=== PATIENT | male | born 1955 | race Caucasian/White ===

== ENCOUNTER 2023-07-30 14:04 | Inpatient (IN) | payer MEDICARE ==
[~2023-07-30 14:04] MED LIST: Iopamidol-370 76% 500 ML MDV (1 ML CHARGE) ONE
[2023-07-30 14:52] LABS: Hematocrit 34.7 % (42.0-52.0); Hemoglobin 11.7 g/dL (14.0-18.0); Manual Diff?? YES; Mean Corpuscular HGB CONC 33.7 g/dL (32.0-36.0); Mean Corpuscular Hemoglobin 30.3 pg (27.0-31.0); Mean Corpuscular Volume 89.9 fl (78.0-98.0); Mean Platelet Volume 11.1 fL (7.4-10.4); Platelet Count 208 10x3/uL (130-400); RBC Distribution Width 20.2 % (11.5-14.5); Red Blood Cell (RBC) Count 3.86 mill/uL (4.70-6.10); White Blood Cell (WBC) Count 9.6 10x3/uL (4.8-10.8)
[2023-07-30 14:56] LABS: Delete Auto Diff?? YES
[2023-07-30 15:13] LABS: INR-International Normal Ratio 0.9; PTT 29.2 sec (22.9-36.1); Prothrombin Time 12.3 sec (12.0-14.7)
[2023-07-30 15:15] LABS: ALT (SGPT) 575 U/L (8-55); AST (SGOT) 344 U/L (5-34); Albumin 3.9 g/dL (3.4-4.8); Alkaline Phosphatase 832 U/L (40-110); Anion Gap 11 mmol/L (10-20); BUN (Urea Nitrogen) 16 mg/dL (8.4-25.7); Bilirubin, Total 6.3 mg/dL (0.2-1.2); Calc. Creatinine Clearance 0 mL/min (70-130); Calcium 8.9 mg/dL (7.8-10.44); Carbon Dioxide 23 mmol/L (23-31); Chloride 101 mmol/L (98-107); Estimated GFR 96; Globulin 3.5 g/dL (2.4-3.5); Glucose 98 mg/dL (80-115); Lipase Less than 4 U/L (8-78); Potassium 3.9 mmol/L (3.5-5.1); Protein, Total 7.4 g/dL (5.8-8.1); Sodium 131 mmol/L (136-145)
[2023-07-30 15:17] LABS: Anisocytosis SLIGHT = 6-15 cells HPF (0-5); Band 1 % (5-11); CellaVision Operator ID LAB.MJL; Eosinophils 1 % (0-10); Lymphocytes 21 % (21-51); Monocytes 13 % (0-10); Neutrophil 63 % (42-75); Platelet Adequacy Comment Platelets Normal; Poikilocytosis MODERATE=16-30 cells HPF (0-5); Polychromasia SLIGHT = 2-3 cells HPF (0-2); Reactive Lymphocytes 1 % (0-10); Stomatocytes SLIGHT = 2-5 cells HPF (0-1); Target Cells MODERATE= 6-15 cells HPF (0-1); Total Cell Count 100
[2023-07-30 15:54] LABS: Bacteria/HPF None Seen HPF (None Seen); Bilirubin Negative (Negative); Blood, Urine Negative (Negative); CAUTI Indications for Culture Pelvic or flank pain; Clarity Clear (Clear); Glucose, Urine (Dipstick) Normal (Negative); Ketone, Urine Trace mg/dL (Negative); Leukocyte Negative Leu/uL (Negative); Nitrite Negative (Negative); Protein, Urine (Dipstick) Negative (Neg-Trace); RBC/HPF 0-3 HPF (0-3); Specific Gravity, Urine 1.015 (1.002-1.036); Squamous Epithelial None Seen HPF (0-3); Urobilinogen Normal mg/dL (Less than 2); WBC/HPF 0-3 HPF (0-3); pH, Urine 5.5 (5.0-9.0)
[2023-07-30 16:06] LABS: Urine Culture Reflex No No
[2023-07-30] MEDS ORDERED: Ondansetron ODT 4 MG TAB PO PRN (19:17)
[2023-07-30] MEDS ORDERED: Lorazepam 1 MG TAB PO PRN (19:24)
[2023-07-30] MEDS ORDERED: Lorazepam 2 MG/ML VIAL IM PRN (19:24)
[2023-07-30 19:49] VITALS: BMI 23.6
[2023-07-30 20:16] LABS: Amphetamine Not Detected (NotDetected); Barbiturates Screen Not Detected (NotDetected); Benzodiazepine Screen Not Detected (NotDetected); Cocaine Metabolite Screen Not Detected (NotDetected); Methadone Not Detected (NotDetected); Methamphetamine Not Detected (NotDetected); Opiate Screen Not Detected (NotDetected); Oxycodone Screen Not Detected (NotDetected); Phencyclidine (PCP) Not Detected (NotDetected); THC/Cannabinoid Screen Detected (NotDetected); Tricyclic Screen Not Detected (NotDetected)
[2023-07-30 20:54] LABS: Acetaminophen Less than 10 mcg/mL (10.0-30.0); Alcohol Less than 10.0 mg/dL (Less than 10)
[2023-07-30 21:27] LABS: Magnesium 1.9 mg/dL (1.6-2.6); Phosphorus 3.6 mg/dL (2.3-4.7)
[2023-07-30] MEDS: Tamsulosin HCl 0.4 MG CAP PO SCH (22:22)
[2023-07-30] MEDS: Multivit, Therapeutic 1 TAB PO SCH (22:22)
[2023-07-30] MEDS: Folic Acid 1 MG TAB PO SCH (22:22)
[2023-07-30] MEDS: Thiamine HCl 200 MG/2 ML VIAL SLOW IVP SCH (22:23)
[2023-07-30 23:53] LABS: HBCM Index 0.08 S/CO (0-0.79); HBSAg Index 0.16 S/CO (0-0.99); Hep A IgM AB Non-Reactive S/CO (NonReactive); Hep A IgM S/CO 0.12 S/CO (0-0.79); Hep B Surf Ag Non-Reactive S/CO (NonReactive); Hep C IgG Ab Non-Reactive S/CO (NonReactive); Hep C Index 0.12 S/CO (0-0.79); Hepatitis B Core IgM Abs Non-Reactive S/CO (NonReactive)
[2023-07-31 06:07] LABS: #Eosinphils 0.3 thou/uL (0.0-0.7); #Monocytes 1.4 thou/uL (0.11-0.59); %Basophils 0.1 % (0.0-1.0); %Eosinophils 3.5 % (0.0-10.0); %Lymphocytes 23.7 % (21.0-51.0); %Monocytes 15.8 % (0.0-10.0); %Neutrophils 56.6 % (42.0-75.0); Hematocrit 33.4 % (42.0-52.0); Mean Corpuscular HGB CONC 32.9 g/dL (32.0-36.0); Mean Corpuscular Hemoglobin 30.3 pg (27.0-31.0); Mean Platelet Volume 12.4 fL (7.4-10.4); Platelet Count 207 10x3/uL (130-400); RBC Distribution Width 18.1 % (11.5-14.5); Red Blood Cell (RBC) Count 3.63 mill/uL (4.70-6.10); White Blood Cell (WBC) Count 8.8 10x3/uL (4.8-10.8)
[2023-07-31 06:38] LABS: Phosphorus 4.1 mg/dL (2.3-4.7)
[2023-07-31 06:40] LABS: ALT (SGPT) 506 U/L (8-55); AST (SGOT) 388 U/L (5-34); Albumin 3.4 g/dL (3.4-4.8); Alkaline Phosphatase 734 U/L (40-110); Anion Gap 12 mmol/L (10-20); BUN (Urea Nitrogen) 19 mg/dL (8.4-25.7); Bilirubin, Total 6.5 mg/dL (0.2-1.2); Calc. Creatinine Clearance 88 mL/min (70-130); Calcium 8.5 mg/dL (7.8-10.44); Carbon Dioxide 23 mmol/L (23-31); Chloride 103 mmol/L (98-107); Estimated GFR 95; Glucose 101 mg/dL (80-115); Magnesium 2.1 mg/dL (1.6-2.6); Potassium 3.7 mmol/L (3.5-5.1); Protein, Total 6.4 g/dL (5.8-8.1); Sodium 134 mmol/L (136-145)
[2023-07-31 07:23] LABS: Triglycerides 63 mg/dL (Less than 150)
[2023-07-31 07:28] LABS: Cardiac Risk 18.8 (Less than 4.5); Cholesterol 450 mg/dl (< 200 Desired); HDL Cholesterol 24 mg/dL (>60 Neg Risk); LDL Cholesterol, Calculated 413 mg/dL
[2023-07-31] MEDS: Enoxaparin 40 MG (0.4 mL) SYRINGE SC SCH (08:05)
[2023-07-31] MEDS: Multivit, Therapeutic 1 TAB PO SCH (08:06)
[2023-07-31] MEDS: Folic Acid 1 MG TAB PO SCH (08:07)
[2023-07-31] MEDS ORDERED: Magnevist 469MG/ML 20 ML VIAL ONE (10:47)
[2023-07-31] MEDS ORDERED: Lorazepam 1 MG TAB PO PRN (19:25)
[2023-07-31] MEDS: diphenhydrAMINE 12.5 MG/5 ML UDCUP PO PRN (21:12)
[2023-08-01 05:28] LABS: #Eosinphils 0.3 thou/uL (0.0-0.7); #Monocytes 1.5 thou/uL (0.11-0.59); #Neutrophils 6.4 thou/uL (1.40-6.50); %Basophils 0.3 % (0.0-1.0); %Eosinophils 3.1 % (0.0-10.0); %Lymphocytes 19.2 % (21.0-51.0); %Monocytes 14.5 % (0.0-10.0); %Neutrophils 62.4 % (42.0-75.0); Hematocrit 34.6 % (42.0-52.0); Hemoglobin 11.2 g/dL (14.0-18.0); Mean Corpuscular HGB CONC 32.4 g/dL (32.0-36.0); Mean Corpuscular Hemoglobin 29.8 pg (27.0-31.0); Mean Platelet Volume 12.7 fL (7.4-10.4); Platelet Count 224 10x3/uL (130-400); RBC Distribution Width 17.3 % (11.5-14.5); Red Blood Cell (RBC) Count 3.76 mill/uL (4.70-6.10); White Blood Cell (WBC) Count 10.3 10x3/uL (4.8-10.8)
[2023-08-01 05:52] LABS: ALT (SGPT) 381 U/L (8-55); AST (SGOT) 180 U/L (5-34); Albumin 3.4 g/dL (3.4-4.8); Alkaline Phosphatase 665 U/L (40-110); Anion Gap 7 mmol/L (10-20); BUN (Urea Nitrogen) 22 mg/dL (8.4-25.7); Bilirubin, Total 4.1 mg/dL (0.2-1.2); Calc. Creatinine Clearance 76 mL/min (70-130); Calcium 8.7 mg/dL (7.8-10.44); Carbon Dioxide 30 mmol/L (23-31); Chloride 104 mmol/L (98-107); Estimated GFR 82; Globulin 3.1 g/dL (2.4-3.5); Glucose 118 mg/dL (80-115); Potassium 4.2 mmol/L (3.5-5.1); Protein, Total 6.5 g/dL (5.8-8.1); Sodium 137 mmol/L (136-145)
[2023-08-01] MEDS: Lactated Ringer's 1,000 ML IV SCH (09:10)
[2023-08-01] MEDS: diphenhydrAMINE 50 MG/ML VIAL IVP SCH (10:03)
[2023-08-01] MEDS ORDERED: Lorazepam 1 MG TAB PO PRN (19:25)
[2023-08-01] MEDS: Thiamine HCl 200 MG/2 ML VIAL SLOW IVP SCH (23:05)
[2023-08-02 04:33] LABS: #Eosinphils 0.3 thou/uL (0.0-0.7); #Monocytes 1.3 thou/uL (0.11-0.59); #Neutrophils 4.8 thou/uL (1.40-6.50); %Basophils 0.3 % (0.0-1.0); %Eosinophils 3.6 % (0.0-10.0); %Monocytes 14.7 % (0.0-10.0); %Neutrophils 54.9 % (42.0-75.0); Hematocrit 32.3 % (42.0-52.0); Hemoglobin 10.6 g/dL (14.0-18.0); Mean Corpuscular HGB CONC 32.8 g/dL (32.0-36.0); Mean Corpuscular Hemoglobin 30.8 pg (27.0-31.0); Mean Corpuscular Volume 93.9 fl (78.0-98.0); Mean Platelet Volume 11.6 fL (7.4-10.4); Platelet Count 209 10x3/uL (130-400); RBC Distribution Width 16.3 % (11.5-14.5); Red Blood Cell (RBC) Count 3.44 mill/uL (4.70-6.10); White Blood Cell (WBC) Count 8.8 10x3/uL (4.8-10.8)
[2023-08-02 04:58] LABS: ALT (SGPT) 294 U/L (8-55); AST (SGOT) 132 U/L (5-34); Albumin 3.4 g/dL (3.4-4.8); Alkaline Phosphatase 592 U/L (40-110); Anion Gap 11 mmol/L (10-20); BUN (Urea Nitrogen) 21 mg/dL (8.4-25.7); Bilirubin, Total 4.1 mg/dL (0.2-1.2); Calc. Creatinine Clearance 84 mL/min (70-130); Calcium 8.5 mg/dL (7.8-10.44); Carbon Dioxide 25 mmol/L (23-31); Chloride 105 mmol/L (98-107); Estimated GFR 93; Globulin 3.1 g/dL (2.4-3.5); Glucose 114 mg/dL (80-115); Potassium 4.3 mmol/L (3.5-5.1); Protein, Total 6.5 g/dL (5.8-8.1); Sodium 137 mmol/L (136-145)
[2023-08-02 09:17] VITALS: BP 123/71; TEMP 97.6
[2023-08-02] MEDS ORDERED: Lorazepam 0.5 MG TAB PO PRN (19:25)
[2023-08-02] MEDS ORDERED: Thiamine 100 MG TAB PO SCH (19:30)
== END 2023-08-02 09:22 | disposition short-term general hospital (02) | DRG 375 ==
LOC: ERS 14:04 → T4-A 17:13 → OBSVTOIN 07-31 14:11
PROVIDERS: ADMIT Family Medicine; ATTEND Family Medicine
PROC: HZ2ZZZZ Detoxification Services for Substance Abuse Treatment (ICD-10-PCS; principal; 2023-07-31)
DX: D49.0 Neoplasm of unspecified behavior of digestive system (principal); E87.1 Hypo-osmolality and hyponatremia; R17 Unspecified jaundice; N40.0 Benign prostatic hyperplasia without lower urinary tract symptoms; F10.10 Alcohol abuse, uncomplicated; D64.9 Anemia, unspecified; Z98.890 Other specified postprocedural states; Z87.891 Personal history of nicotine dependence; E78.00 Pure hypercholesterolemia, unspecified
CPT/HCPCS: 36415; 74177; 74183; 76705; 80053; 80061; 80074; 80143; 80306; 80307; 81001; 82140; 83690; 83735; 83930; 83935; 84100; 84300; 85025; 85060; 85610; 85730; 86850; 86900; 86901; 96374; A9579; G0378; J1200; J3411; J7120; Q0163; Q9967

== ENCOUNTER 2023-08-08 11:14 | Emergency (ER) | payer MEDICARE ==
[2023-08-08 11:53] LABS: Hematocrit 33.6 % (42.0-52.0); Manual Diff?? YES; Mean Corpuscular HGB CONC 32.7 g/dL (32.0-36.0); Mean Corpuscular Hemoglobin 30.6 pg (27.0-31.0); Mean Corpuscular Volume 93.6 fl (78.0-98.0); Mean Platelet Volume 11.2 fL (7.4-10.4); Platelet Count 256 10x3/uL (130-400); RBC Distribution Width 14.9 % (11.5-14.5); Red Blood Cell (RBC) Count 3.59 mill/uL (4.70-6.10); White Blood Cell (WBC) Count 10.2 10x3/uL (4.8-10.8)
[2023-08-08 11:57] LABS: Delete Auto Diff?? YES
[2023-08-08 12:23] LABS: Prothrombin Time 13.2 sec (12.0-14.7)
[2023-08-08 12:24] LABS: PTT 30.3 sec (22.9-36.1)
[2023-08-08 12:28] LABS: ALT (SGPT) 333 U/L (8-55); AST (SGOT) 168 U/L (5-34); Albumin 3.6 g/dL (3.4-4.8); Alkaline Phosphatase 794 U/L (40-110); Anion Gap 11 mmol/L (10-20); BUN (Urea Nitrogen) 23 mg/dL (8.4-25.7); Bilirubin, Total 3.7 mg/dL (0.2-1.2); Calc. Creatinine Clearance 0 mL/min (70-130); Calcium 8.6 mg/dL (7.8-10.44); Carbon Dioxide 25 mmol/L (23-31); Chloride 101 mmol/L (98-107); Estimated GFR 82; Globulin 3.4 g/dL (2.4-3.5); Glucose 266 mg/dL (80-115); Potassium 4.3 mmol/L (3.5-5.1); Sodium 133 mmol/L (136-145)
[2023-08-08 12:35] LABS: Band 2 % (5-11); CellaVision Operator ID LAB.MJL; Eosinophils 3 % (0-10); Large Platelets 11.1 % (0-5); Lymphocytes 15 % (21-51); Monocytes 17 % (0-10); Neutrophil 62 % (42-75); Platelet Adequacy Comment Platelets Normal; Polychromasia SLIGHT = 2-3 cells HPF (0-2); Reactive Lymphocytes 1 % (0-10); Total Cell Count 99
[2023-08-08 13:09] LABS: Lipase 6 U/L (8-78)
[2023-08-08] MEDS ORDERED: Morphine 4 MG/ML VIAL ONE (15:58)
== END 2023-08-08 17:40 | disposition short-term general hospital (02) ==
LOC: ERS 11:14
DX: K80.50 Calculus of bile duct without cholangitis or cholecystitis without obstruction (principal); K86.9 Disease of pancreas, unspecified; R94.5 Abnormal results of liver function studies; K83.8 Other specified diseases of biliary tract; Z85.51 Personal history of malignant neoplasm of bladder; Z87.891 Personal history of nicotine dependence
CPT/HCPCS: 36415; 74177; 80053; 82140; 83690; 85025; 85610; 85730; 96374; J2270

== ENCOUNTER 2024-01-17 13:33 | Emergency (ER) | payer MEDICARE ==
[2024-01-17 14:43] LABS: #Basophils Less than 0.03 10x3/uL (0.0-0.2); #Eosinphils Less than 0.03 10x3/uL (0.0-0.7); %Basophils 0.1 % (0.0-1.0); %Eosinophils 0.1 % (0.0-10.0); %Lymphocytes 10.9 % (21.0-51.0); %Monocytes 9.6 % (0.0-10.0); Hematocrit 34.9 % (42.0-52.0); Hemoglobin 11.8 g/dL (14.0-18.0); Mean Corpuscular HGB CONC 33.8 g/dL (32.0-36.0); Mean Corpuscular Hemoglobin 29.4 pg (27.0-31.0); Mean Corpuscular Volume 86.8 fL (78.0-98.0); Mean Platelet Volume 11.3 fL (7.4-10.4); Platelet Count 257 10x3/uL (130-400); RBC Distribution Width 16.4 % (11.5-14.5); Red Blood Cell (RBC) Count 4.02 mill/uL (4.70-6.10)
[2024-01-17 14:54] LABS: ALT (SGPT) 123 U/L (8-55); AST (SGOT) 92 U/L (5-34); Alkaline Phosphatase 724 U/L (40-110); Anion Gap 15 mmol/L (10-20); BUN (Urea Nitrogen) 14 mg/dL (8.4-25.7); Bilirubin, Total 2.4 mg/dL (0.2-1.2); Calc. Creatinine Clearance 0 mL/min (70-130); Calcium 8.9 mg/dL (7.8-10.44); Carbon Dioxide 24 mmol/L (23-31); Chloride 102 mmol/L (98-107); Estimated GFR 96; Globulin 4.3 g/dL (2.4-3.5); Glucose 99 mg/dL (80-115); Potassium 4.3 mmol/L (3.5-5.1); Protein, Total 7.3 g/dL (5.8-8.1); Sodium 137 mmol/L (136-145)
[2024-01-17] MEDS ORDERED: Morphine 4 MG/ML VIAL ONE ×2 (15:13→22:00)
[2024-01-17] MEDS ORDERED: Ondansetron PF 4 MG/2 ML Vial ONE ×2 (15:13→22:00)
[2024-01-17] MEDS ORDERED: Piperacillin/Tazobactam 4.5 GM VIAL ONE (17:08)
[2024-01-17] MEDS ORDERED: Sodium Chloride 0.9% 100 ML ONE (17:08)
== END 2024-01-17 22:07 | disposition short-term general hospital (02) ==
LOC: ERS 13:33
DX: K80.50 Calculus of bile duct without cholangitis or cholecystitis without obstruction (principal); K86.1 Other chronic pancreatitis; Z87.891 Personal history of nicotine dependence
CPT/HCPCS: 74177; 80053; 82140; 83690; 85025; J2272; J2405; J2543; 36415; Q9967